=== PATIENT | male | born 2000 | race Caucasian/White ===

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

== ENCOUNTER 2019-05-16 07:38 | Emergency (ER) | payer OTHER ==
[2019-05-16] MEDS ORDERED: Ibuprofen TAB* 600 MG PO ONE (07:53)
--- NOTE | 2019-05-16 09:43 | ED ---
Lower Extremity - HPI Summary HPI Summary: This patient is a 18-year-old male presenting to the ED with left ankle injury. Patient states he was trail running this morning, touching his foot on a tree root, inverted the ankle and fell. He denies any other injuries with the fall. He is endorsing pain to the most lateral portion of the ankle as well as the dorsum of the ankle joint. Endorses swelling without ecchymosis. Patient was able to bear some weight immediately following the incident, however he does not feel he is able to at this time. He has not taken any medication prior to arrival. - History of Current Complaint Chief Complaint: EDFall Stated Complaint: ANKLE INJURY PER EMS Time Seen by Provider: 05/16/19 07:47 Hx Obtained From: Patient Onset of Pain: Immediate Onset/Duration: Hours Severity Initially: Moderate Severity Currently: Moderate Pain Intensity: 3 Pain Scale Used: 0-10 Numeric Timing: Constant Location: Is Discrete @ - left ankle pain Associated Signs And Symptoms: Positive: Swelling. Negative: Redness, Bruising , Fever, Weakness Aggravating Factor(s): Standing, Ambulation Alleviating Factor(s): Rest Able to Bear Weight: No - Risk Factors Gout Risk Factors: Negative DVT Risk Factors: Negative Septic Arthritis Risk Factor: Negative - Allergies/Home Medications Allergies/Adverse Reactions: Allergies Allergy/AdvReac Type Severity Reaction Status Date / Time No Known Allergies Allergy Verified 12/19/18 12:21 PMH/Surg Hx/FS Hx/Imm Hx Previously Healthy: Yes Endocrine/Hematology History: Denies: Hx Diabetes, Hx Thyroid Disease Cardiovascular History: Denies: Hx Hypertension Respiratory History: Denies: Hx Asthma, Hx Chronic Obstructive Pulmonary Disease (COPD) GI History: Denies: Hx Ulcer Sensory History: Denies: Hx Legally Blind, Hx Deafness Opthamlomology History: Denies: Hx Legally Blind - Immunization History Immunizations Up to Date: Yes Infectious Disease History: No Infectious Disease History: Denies: Hx Hepatitis, Hx Human Immunodeficiency Virus (HIV), Traveled Outside the [place] in Last 30 Days - Family History Known Family History: Positive: None Negative: Blood Disorder - Social History Occupation: Unemployed Lives: Dormitory/Roommates Alcohol Use: Occasionally Alcohol Amount: quit 1 month ago Hx Substance Use: Yes Substance Use Type: Reports: Marijuana Substance Use Comment - Amount & Last Used: Quit 1 month ago Hx Tobacco Use: Yes Smoking Status (MU): Former Smoker Review of Systems Constitutional: Negative Negative: Fever, Chills, Fatigue, Skin Diaphoresis Negative: Palpitations, Chest Pain Genitourinary: Negative Positive: no symptoms reported, see HPI Positive: Arthralgia - left lateral ankle pain and swelling Skin: Negative Negative: Rash, Bruising Neurological: Negative All Other Systems Reviewed And Are Negative: Yes Physical Exam Triage Information Reviewed: Yes Vital Signs On Initial Exam: Initial Vitals Temp Pulse Resp BP Pulse Ox 98 F 79 16 137/69 100 05/16/19 07:39 05/16/19 07:39 05/16/19 07:39 05/16/19 07:39 05/16/19 07:39 Vital Signs Reviewed: Yes Appearance: Positive: Well-Appearing, Well-Nourished Skin: Positive: Warm, Skin Color Reflects Adequate Perfusion Head/Face: Positive: Normal Head/Face Inspection Eyes: Positive: EOMI, [place], Conjunctiva Clear Neck: Positive: Supple, No Lymphadenopathy Respiratory/Lung Sounds: Positive: Clear to Auscultation, Breath Sounds Present Cardiovascular: Positive: RRR, Pulses are Symmetrical in both Upper and Lower Extremities Musculoskeletal: Positive: Pain @ - left lateral ankle pain and swelling Psychiatric: Positive: Affect/Mood Appropriate Diagnostics - Vital Signs Vital Signs Temp Pulse Resp BP Pulse Ox 05/16/19 07:39 98 F 79 16 137/69 100 - Laboratory Lab Statement: Any lab studies that have been ordered have been reviewed, and results considered in the medical decision making process. Lower Extremity Course/Dx - Course Course Of Treatment: During this was treatment, the patient's evaluated for left ankle pain. There is swelling noted on arrival. Pulses +2 intact bilaterally. No ecchymosis. Patient is able to plantar flex as well as dorsiflex with moderate amount of discomfort. Elevated and iced on arrival. X- ray obtained which shows soft tissue swelling without obvious fracture. Crutches given. Dx with ankle sprain. - Diagnoses Differential Diagnosis/HQI/PQRI: Positive: Fracture (Closed), Sprain, Strain Provider Diagnoses: Ankle sprain Discharge ED - Sign-Out/Discharge Documenting (check all that apply): Patient Departure Patient Received Moderate/Deep Sedation with Procedure: No - Discharge Plan Condition: Stable Disposition: HOME Patient Education Materials: Ankle Sprain (ED) Referrals: [facility] - [place] IBRAHIM [Primary Care Provider] - Additional Instructions: Ibuprofen 600mg three times daily Ice and elevate as much as possible Crutches as needed Bear weight as tolerated - Billing Disposition and Condition Condition: STABLE Disposition: Home
[2019-05-16 09:58] VITALS: BP 119/71
== END 2019-05-16 09:55 | disposition home or self-care (01) ==
LOC: ED 07:38
DX: S93.402A Sprain of unspecified ligament of left ankle, initial encounter (principal); X50.9XXA Other and unspecified overexertion or strenuous movements or postures, initial encounter; W18.30XA Fall on same level, unspecified, initial encounter; Y93.02 Activity, running; Y92.838 Other recreation area as the place of occurrence of the external cause; Z87.891 Personal history of nicotine dependence
CPT/HCPCS: 99282; A9270-GY

== ENCOUNTER 2019-08-03 03:34 | Emergency (ER) | payer OTHER ==
--- NOTE | 2019-08-03 05:05 | ED ---
GI/ HPI - HPI Summary HPI Summary: Patient is a 18 y/o M presenting to the ED for a chief complaint of rectal pain that began 2-3 days ago. Patient describes the rectal pain as an "open wound" and has a burning sensation. This is the second time he has had rectal pain, with the last episode occurring a few months ago. At that time, he was tested positive for strep and was treated with antibiotics. Patient denies fever, nausea, vomiting, constipation, diarrhea, abdominal pain, or changes in bowel movements. He denies trauma or injury to the area. He denies any aggravating or alleviating factors. Patient recently had a strep swab performed at [facility] with pending results. He notes having intercourse with males. A recent HSV swab had negative findings. PSHx of abdominal surgery is denied. Patient is a [employer] [place] student. - History of Current Complaint Chief Complaint: EDGeneral Time Seen by Provider: 08/03/19 04:59 Stated Complaint: IRRITATION PER PT Hx Obtained From: Patient Timing: Constant Severity: Severe Current Severity: Severe Pain Intensity: 7 Location of Pain: Rectal Pain Characteristics: Burning Associated Signs and Symptoms: Positive: Rectal Pain. Negative: Nausea, Vomiting, Constipation, Diarrhea, Fever, Abdominal Pain Aggravating Factor(s): Nothing Alleviating Factor(s): Nothing - Allergy/Home Medications Allergies/Adverse Reactions: Allergies Allergy/AdvReac Type Severity Reaction Status Date / Time No Known Allergies Allergy Verified 08/03/19 03:39 Home Medications: Home Medications Cod Liver Oil/Zinc Oxide [Desitin Diaper Rash 40% Paste] 57 gm TOPICAL DAILY PRN 08/03/19 [History Confirmed 08/03/19] Ibuprofen TAB* [Motrin TAB* 600 MG] 600 mg PO Q6H PRN 08/03/19 [History Confirmed 08/03/19] PMH/Surg Hx/FS Hx/Imm Hx Previously Healthy: Yes Endocrine/Hematology History: Denies: Hx Diabetes, Hx Thyroid Disease Cardiovascular History: Denies: Hx Hypertension Respiratory History: Denies: Hx Asthma, Hx Chronic Obstructive Pulmonary Disease (COPD) GI History: Denies: Hx Ulcer Sensory History: Denies: Hx Legally Blind, Hx Deafness Opthamlomology History: Denies: Hx Legally Blind EENT History: Denies: Hx Deafness - Surgical History Surgical History: None Surgery Procedure, Year, and Place: None Infectious Disease History: No Infectious Disease History: Denies: Hx Hepatitis, Hx Human Immunodeficiency Virus (HIV), Traveled Outside the [place] in Last 30 Days - Family History Known Family History: Negative: Cardiac Disease, Diabetes, Blood Disorder - Social History Occupation: Student Lives: Alone Alcohol Use: Occasionally Alcohol Amount: quit 1 month ago Hx Substance Use: Yes Substance Use Type: Reports: Marijuana Substance Use Comment - Amount & Last Used: Quit 1 month ago Hx Tobacco Use: Yes Smoking Status (MU): Former Smoker Review of Systems Negative: Fever Positive: Other - Negative constipation or changes in bowel movements. Negative : Abdominal Pain, Vomiting, Diarrhea, Nausea Positive: pain - Rectal All Other Systems Reviewed And Are Negative: Yes Physical Exam - Summary Physical Exam Summary: Appearance: Well-appearing, Well-nourished, lying in bed comfortably Skin: Warm, dry, no obvious rash Eyes: sclera anicteric, no conjunctival pallor ENT: mucous membranes moist, pharynx appears normal Neck: Supple, nontender Respiratory: Clear to auscultation, no signs of respiratory distress Cardiovascular: Normal S1, S2. No murmurs. Normal distal pulses in tibial and radial bilaterally. Abdomen: Soft, nontender, normal active bowel sounds present Musculoskeletal: Normal, Strength/ROM Intact Neurological: A&Ox3, awake and alert, mentation is normal, speech is fluent and appropriate Rectal: The perianal skin is quite inflamed, particularly at the 6 o'clock position and extending posteriorly. While the degree of inflammation makes it difficult to be certain, there does appear to be some vesiculation present as well. Digital internal exam was not attempted due to the degree of pain and obvious external inflammation, but gentle palpation to the area did not show any induration or fluctuance to suggest an abscess or other deeper process. Psychiatric: affect is normal, does not appear anxious or depressed Triage Information Reviewed: Yes Vital Signs On Initial Exam: Initial Vitals Temp Pulse Resp BP Pulse Ox 97.5 F 66 16 137/87 98 08/03/19 03:35 08/03/19 03:35 08/03/19 03:35 08/03/19 03:35 08/03/19 03:35 Vital Signs Reviewed: Yes Procedures - Sedation Patient Received Moderate/Deep Sedation with Procedure: No Diagnostics - Vital Signs Vital Signs Temp Pulse Resp BP Pulse Ox 08/03/19 03:35 97.5 F 66 16 137/87 98 - Laboratory Lab Statement: Any lab studies that have been ordered have been reviewed, and results considered in the medical decision making process. GIGU Course/Dx - Course Course Of Treatment: Patient is a 18 y/o M presenting to the ED for a chief complaint of rectal pain that began 2-3 days ago. Patient describes the rectal pain as an "open wound" and has a burning sensation. This is the second time he has had rectal pain, with the last episode occurring a few months ago. At that time, he was tested positive for strep and was treated with antibiotics. Patient denies fever, nausea, vomiting, constipation, diarrhea, abdominal pain, or changes in bowel movements. He denies trauma or injury to the area. He denies any aggravating or alleviating factors. Patient recently had a strep swab performed at [facility] with pending results. He notes having intercourse with males. A recent HSV swab had negative findings. PSHx of abdominal surgery is denied. On exam, unremarkable findings. In the ED course , patient was given lidocaine 1 applic and Valtrex 1 gm PO. Patient will be discharged with a diagnosis of herpes simplex virus infection. Follow up with PCP in 2-3 days. - Diagnoses Provider Diagnoses: HSV (herpes simplex virus) infection Discharge ED - Sign-Out/Discharge Documenting (check all that apply): Patient Departure - Discharge - Discharge Plan Condition: Good Disposition: HOME Prescriptions: Lidocaine 5% OINT* TUBE [Xylocaine 5% Oint*] 1 applic TOPICAL SEE INSTRUCTIONS PRN #1 tube PRN Reason: Pain - Moderate ValACYclovir (*) [Valtrex 1 GM(*)] 1 gm PO BID #14 tab Patient Education Materials: Genital Herpes Simplex (ED) Referrals: [facility] - Wilber IBRAHIM [Z.BUSINESS, APPLICATION, OTHER] - Additional Instructions: Based on the appearance of the area and the degree of inflammation and pain you have, I am suspicious that this is an acute HSV infection. I think a course of antiviral therapy is reasonable, even if the HSV test from [place] comes back negative. - Billing Disposition and Condition Condition: GOOD Disposition: Home - Attestation Statements Document Initiated by Scribe: Yes Documenting Scribe: Deysi Interiano Provider For Whom Scribe is Documenting (Include Credential): Jared Franks MD Scribe Attestation: I, Deysi Interiano, scribed for Jared Franks MD on 08/03/19 at 0649. Scribe Documentation Reviewed: Yes Provider Attestation: The documentation as recorded by the summeribDeysi vernon accurately reflects the service I personally performed and the decisions made by me, Jared Franks MD Status of Scrcarmita Document: Viewed
[2019-08-03] MEDS ORDERED: Lidocaine 5% OINT* TUBE TOPICAL PRN (05:52)
[2019-08-03 06:54] VITALS: BP 106/63
[2019-08-03] MEDS ORDERED: ValACYclovir (*) 1 GM TAB PO SCH (09:00)
== END 2019-08-03 06:52 | disposition home or self-care (01) ==
LOC: ED 03:34
DX: B00.9 Herpesviral infection, unspecified (principal); Z87.891 Personal history of nicotine dependence
CPT/HCPCS: 99283; A9270-GY